=== PATIENT | male | born 1995 | race Two or more races ===

== ENCOUNTER 2023-01-18 00:35 | Emergency (ER) | payer BC, MEDICAID ==
[~2023-01-18] VITALS: Ht 188 cm; Wt 127.3 kg
[2023-01-18 00:57] VITALS: BP 117/69; RESP 18; TEMP 98
[2023-01-18 04:12] LABS: COVID19 ANTIGEN SOFIA FIA NEGATIVE (NEGATIVE); Rapid Influenza A Negative (Negative); Rapid Influenza B Positive (Negative)
[2023-01-18] MEDS ORDERED: IBUP-1456 PO (04:39)
[2023-01-18] MEDS ORDERED: OSEL75CA5 PO (04:39)
[2023-01-18 05:09] VITALS: O2SAT 96
[2023-01-18 05:23] VITALS: PULSE 93
== END 2023-01-18 06:56 | disposition home or self-care (01) ==
LOC: ER 00:38
DX: J10.1 Influenza due to other identified influenza virus with other respiratory manifestations (principal); Z20.822 Contact with and (suspected) exposure to COVID-19
CPT/HCPCS: 36415; 87426; 87804; 93005